=== PATIENT | female | born 1990 | race American Indian/Alaskan Native ===

== ENCOUNTER 2017-02-19 15:48 | Emergency (ER) | payer SELFPAY ==
[2017-02-19 17:55] LABS: Bilirubin,Urine NEG (Negative); Blood,Urine NEG (Negative); Ketones,Urine NEG (Negative); Leukocyte Esterase,Urine MOD (Negative); Mucus,Urine 1+ /HPF; Nitrite,Urine NEG (Negative); Protein,Urine <15 mg/dL mg/dL (Negative)
--- NOTE | 2017-02-19 19:51 | Emergency Department Report ---
HPI - General Chief Complaint: Urogenital-Female Time Seen by Provider: 02/19/17 19:28 - HPI HPI: 26-year-old female presents today with increased urinary frequency and urgency 2 days. Positive for history of UTI and states this feels similar. Patient states last menstrual period unknown, has a Nexplanon implant in her left bicep. She has taken one dose of amoxicillin today without relief. Denies fever, chills, nausea, vomiting, chest pain, shortness of breath, abdominal pain , partial bleeding, vaginal discharge. ED Past Medical Hx - Past Medical History Previous Medical History?: Yes - Surgical History Past Surgical History?: Yes Additional Surgical History: back surgery 2001 - Social History Smoking Status: Current Every Day Smoker Substance Use Type: Alcohol - Medications Home Medications: Home Medications Medication Instructions Recorded Confirmed Last Taken Type Nitrofurantoin Monohyd/M-Cryst 100 mg PO BID #10 capsule 02/19/17 Unknown Rx [Macrobid 100 mg Capsule] Phenazopyridine [Pyridium] 100 mg PO TID 2 Days 02/19/17 Unknown Rx ED Review of Systems ROS: Stated complaint: FREQUENT URINATING Other details as noted in HPI Constitutional: denies: chills, fever, malaise Eyes: denies: eye pain ENT: denies: ear pain, throat pain, congestion Respiratory: denies: cough, shortness of breath, wheezing Cardiovascular: denies: chest pain, palpitations Endocrine: no symptoms reported Gastrointestinal: denies: abdominal pain, nausea, vomiting Genitourinary: urgency, frequency. denies: dysuria, hematuria, discharge Musculoskeletal: denies: back pain Skin: denies: rash Neurological: denies: headache, weakness, numbness, paresthesias Psychiatric: denies: anxiety, depression Physical Exam - Physical Exam Vital Signs: Vital Signs 02/19/17 17:17 Temperature 98.2 F Pulse Rate 63 Respiratory 16 Rate O2 Sat by Pulse 100 Oximetry Physical Exam: GENERAL: The patient is well-developed and well-nourished. Patient is in NAD. HEAD: Normocephalic. Atraumatic. NECK: Supple, nontender, without lymphadenopathy. No meningitic signs are noted. CHEST/LUNGS: Clear to auscultation throughout. HEART/CARDIOVASCULAR: Regular rate and rhythm. No murmurs, rubs or gallops. ABDOMEN: Abdomen is soft, nontender. Bowel sounds normoactive. No guarding or rebound tenderness. No CVA tenderness to palpation. EXTREMITIES: No cyanosis, clubbing or edema. Peripheral pulses intact. Capillary refill less than 2 seconds. NEURO: Alert and oriented x 3. Normal gait. ED Course Vital Signs 02/19/17 17:17 Temperature 98.2 F Pulse Rate 63 Respiratory 16 Rate O2 Sat by Pulse 100 Oximetry ED Medical Decision Making - Medical Decision Making 26-year-old female presents today complaining of increased urinary frequency or urgency 2 days. Her urine test is negative. Urinalysis revealed moderate leukocyte esterase and elevated urine WBC. Patient is in no acute distress at this time. She will be discharged home and is encouraged to follow up with a primary care provider. She will be sent home on Macrobid and Pyridium and is encouraged to return to the emergency room for any worsening symptoms. Critical care attestation.: If time is entered above; I have spent that time in minutes in the direct care of this critically ill patient, excluding procedure time. ED Disposition Clinical Impression: UTI (urinary tract infection) Qualifiers: Urinary tract infection type: acute cystitis Hematuria presence: without hematuria Qualified Code(s): N30.00 - Acute cystitis without hematuria Disposition: - TO HOME OR SELFCARE Is pt being admited?: No Does the pt Need Aspirin: No Condition: Stable Instructions: Urinary Tract Infection in Women (ED), Phenazopyridine (By mouth) Additional Instructions: Follow-up with primary care provider. Return to the emergency department if symptoms worsen. Prescriptions: Nitrofurantoin Monohyd/M-Cryst [Macrobid 100 mg Capsule] 100 mg PO BID #10 capsule Phenazopyridine [Pyridium] 100 mg PO TID 2 Days Referrals: PRIMARY CARE, [Primary Care Provider] - 3-5 Days [facility] [Outside] - 3-5 Days Forms: Work/School Release Form(ED), Accompanied Note Time of Disposition: 19:52
[2017-02-19 20:06] VITALS: BP 119/77
== END 2017-02-19 20:08 | disposition home or self-care (01) ==
LOC: ED 15:48
DX: N30.00 Acute cystitis without hematuria (principal); F17.200 Nicotine dependence, unspecified, uncomplicated
CPT/HCPCS: 81001; 81025; 99283

== ENCOUNTER 2017-03-10 09:31 | Emergency (ER) | payer SELFPAY ==
[2017-03-10 09:43] VITALS: BP 122/77
--- NOTE | 2017-03-10 13:36 | Emergency Department Report ---
HPI - General Chief Complaint: Extremity Injury, Lower Time Seen by Provider: 03/10/17 12:34 - HPI HPI: Pt is a 26 yo female with no medical hx known to me who presents to ED co of splinter in her right big toe x 1 day. Patient states yesterday she stepped outside for the patient saw some broken glass and today she stepped on a piece. Patient states she noticed a small black dot on the end of her big toe. Patient denies inability to walk, loss of function of the toe. She reports Td vaccination up-to-date . She denied fever / chills/nausea vomiting abdominal pain or any other problems. ED Past Medical Hx - Past Medical History Previous Medical History?: No - Surgical History Additional Surgical History: back surgery 2001 - Social History Smoking Status: Current Every Day Smoker Substance Use Type: None - Medications Home Medications: Home Medications Medication Instructions Recorded Confirmed Last Taken Type Nitrofurantoin Monohyd/M-Cryst 100 mg PO BID #10 capsule 02/19/17 Unknown Rx [Macrobid 100 mg Capsule] Phenazopyridine [Pyridium] 100 mg PO TID 2 Days tab 02/19/17 Unknown Rx Cephalexin [Keflex] 500 mg PO Q12HR #10 cap 03/10/17 Unknown Rx Ibuprofen [Motrin] 400 mg PO Q8H PRN #20 tablet 03/10/17 Unknown Rx ED Review of Systems ROS: Stated complaint: MOUTH PAIN Other details as noted in HPI Constitutional: denies: chills, fever Eyes: denies: eye pain, eye discharge, vision change ENT: denies: ear pain, throat pain Respiratory: denies: cough, shortness of breath, wheezing Cardiovascular: denies: chest pain, palpitations Endocrine: no symptoms reported Gastrointestinal: denies: abdominal pain, nausea, diarrhea Genitourinary: denies: urgency, dysuria, discharge Musculoskeletal: denies: back pain, joint swelling, arthralgia Skin: denies: rash, lesions Neurological: denies: headache, weakness, paresthesias Psychiatric: denies: anxiety, depression Hematological/Lymphatic: denies: easy bleeding, easy bruising Physical Exam - Physical Exam Vital Signs: Vital Signs 03/10/17 09:38 Temperature 98.1 F Pulse Rate 90 Respiratory 16 Rate Blood Pressure 122/77 O2 Sat by Pulse 99 Oximetry Physical Exam: GENERAL: Alert and oriented x3, no apparent distress, Normal Gait, atraumatic. HEAD: Head is normocephalic and a-traumatic. EYES: Extra ocular muscles are intact. Pupils are equal, round, and reactive to light and accommodation. LUNGS: Symetrical with respiration, No wheezing, no rales or crackles, CTAB. HEART: S1, S2 present, regular rate and rhythm without murmur. EXTREMITIES/MUSCULOSKELETAL: No cyanosis, clubbing, rash, lesions or edema. Full ROM bilaterally. Pedal Pulses 2+ bilaterally. Pinpoint black clara seen on ride medial aspect of the great toe., No erythema, no erythematous, tender to palpation at the site NEUROLOGIC: The patient is cooperative with no focal neurologic deficits. Normal speech. Normal sensation in bilateral lower extremities, No loss of sensation, SKIN: Warm and dry, No lesions, No ulceration or induration present. ED Course Vital Signs 03/10/17 09:38 Temperature 98.1 F Pulse Rate 90 Respiratory 16 Rate Blood Pressure 122/77 O2 Sat by Pulse 99 Oximetry ED Medical Decision Making - Medical Decision Making 26-year-old female presents with foot splinter ED course: The toe was cleaned with alcohol and Betadine. splinter was removed with pick ups. She tolerated procedure well. Discussed with patient to follow-up with primary care physician. Discussed applied triple to glottic ointment and wound little abrasion. Vital signs are normal patient is in no acute distress showed no signs of instructions as given. Critical care attestation.: If time is entered above; I have spent that time in minutes in the direct care of this critically ill patient, excluding procedure time. ED Disposition Clinical Impression: Splinter of right foot without infection Qualifiers: Encounter type: initial encounter Qualified Code(s): S90.851A - Superficial foreign body, right foot, initial encounter Disposition: DC- TO HOME OR SELFCARE Is pt being admited?: No Does the pt Need Aspirin: No Condition: Stable Instructions: Abrasion (ED) Additional Instructions: Keep wound dry daily. Apply triple ointment to the abrasion on the foot Follow-up with primary care physician. Prescriptions: Cephalexin [Keflex] 500 mg PO Q12HR #10 cap Ibuprofen [Motrin] 400 mg PO Q8H PRN #20 tablet PRN Reason: Pain Referrals: PRIMARY CARE, [Primary Care Provider] - 3-5 Days [facility] [Outside] - 3-5 Days [facility] [Outside] - 3-5 Days [facility] [Outside] - 3-5 Days Forms: Accompanied Note, Work/School Release Form Time of Disposition: 13:36
== END 2017-03-10 14:03 | disposition home or self-care (01) ==
LOC: ED 09:31
DX: S90.851A Superficial foreign body, right foot, initial encounter (principal); F17.200 Nicotine dependence, unspecified, uncomplicated; W45.8XXA Other foreign body or object entering through skin, initial encounter; Y93.89 Activity, other specified; Y92.89 Other specified places as the place of occurrence of the external cause; Y99.8 Other external cause status
CPT/HCPCS: 99282

== ENCOUNTER 2018-12-26 13:51 | Emergency (ER) | payer MEDICAID ==
--- NOTE | 2018-12-26 15:06 | Event Note ---
ED Screening Note Date of service: 12/26/18 Time: 15:02 ED Screening Note: This is a 28 y.o. F. that presents to the ER with pain left shoulder blade radiating to chest for 2 days. Denies injury Reports acute on chronic back pain for years. This initial assessment/diagnostic orders/clinical plan/treatment(s) is/are subject to change based on patients health status, clinical progression and re- assessment by fellow clinical providers in the ED. Further treatment and workup at subsequent clinical providers discretion. Patient/guardian urged not to elope from the ED as their condition may be serious if not clinically assessed and managed. Initial orders include: XR thoracic
[2018-12-26 15:10] VITALS: BP 141/86
--- NOTE | 2018-12-26 16:12 | XRay Report ---
THORACIC SPINE 3 VIEWS INDICATION: pain left shoulder blade and chest. COMPARISON: No relevant prior imaging study available. FINDINGS: Nicolás rods are noted throughout the thoracic spine. There is osseous fusion throughout the thora cic spine. No fracture or subluxation is seen. There is mild scoliosis. IMPRESSION: 1. No acute findings. Signer Name: Marcelo Kc MD Signed: 12/26/2018 4:07 PM Workstation Name: [id number]
[2018-12-26] MEDS ORDERED: NORCO 5/325 PO ONE (16:31)
[2018-12-26] MEDS ORDERED: FLEXERIL PO ONE (16:31)
--- NOTE | 2018-12-26 16:31 | Emergency Department Report ---
ED Back Pain/Injury HPI - General Chief Complaint: Back Pain/Injury Stated Complaint: LFT SHOULDER/BACK PAIN/POSS SURG Time Seen by Provider: 12/26/18 15:02 Source: patient Limitations: No Limitations - History of Present Illness Initial Comments: Ms. Gaines is a very pleasant 28-year-old female with history of scoliosis status post surgery 15 years ago who presents with severe left upper back pain. Her arm twisted behind her while playing with her son She had immediate pain in her left upper back near her shoulder blade. She feels as if her muscles are stretched. Pain radiates to the chest. Exquisite severe pain . The incident occurred on . Improved on Friday. Ibuprofen provides mild relief. She is afraid to make some movements. Denies shortness of breath. Denies fever. Denies cough. MD Complaint: back pain, back injury -: Sudden Place: home Severity: mild Quality: dull Consistency: constant Improves With: other (sitting still) Worsens With: movement, walking Context: turning/twisting, bending Associated Symptoms: denies other symptoms - Related Data Previous Rx's Medication Instructions Recorded Last Taken Type Nitrofurantoin Monohyd/M-Cryst 100 mg PO BID #10 capsule 02/19/17 Unknown Rx [Macrobid 100 mg Capsule] Phenazopyridine [Pyridium] 100 mg PO TID 2 Days tab 02/19/17 Unknown Rx Ibuprofen [Motrin] 400 mg PO Q8H PRN #20 tablet 03/10/17 Unknown Rx cephALEXin [Keflex] 500 mg PO Q12HR #10 cap 03/10/17 Unknown Rx Cyclobenzaprine [Flexeril] 10 mg PO TID PRN #20 tablet 12/26/18 Unknown Rx HYDROcodone/APAP 5-325 [[place] 1 each PO Q6HR PRN #10 tablet 12/26/18 Unknown Rx 5/325] Allergies Allergy/AdvReac Type Severity Reaction Status Date / Time No Known Allergies Allergy Verified 12/26/18 15:08 ED Review of Systems ROS: Stated complaint: LFT SHOULDER/BACK PAIN/POSS SURG Other details as noted in HPI Comment: All other systems reviewed and negative Constitutional: denies: fever, malaise Respiratory: denies: cough, shortness of breath Cardiovascular: chest pain ED Past Medical Hx - Surgical History Past Surgical History?: Yes Additional Surgical History: back surgery 2001 - Social History Smoking Status: Current Every Day Smoker - Medications Home Medications: Home Medications Medication Instructions Recorded Confirmed Last Taken Type Nitrofurantoin Monohyd/M-Cryst 100 mg PO BID #10 capsule 02/19/17 Unknown Rx [Macrobid 100 mg Capsule] Phenazopyridine [Pyridium] 100 mg PO TID 2 Days tab 02/19/17 Unknown Rx Ibuprofen [Motrin] 400 mg PO Q8H PRN #20 tablet 03/10/17 Unknown Rx cephALEXin [Keflex] 500 mg PO Q12HR #10 cap 03/10/17 Unknown Rx Cyclobenzaprine [Flexeril] 10 mg PO TID PRN #20 tablet 12/26/18 Unknown Rx HYDROcodone/APAP 5-325 [[place] 1 each PO Q6HR PRN #10 tablet 12/26/18 Unknown Rx 5/325] ED Physical Exam - General Limitations: No Limitations General appearance: alert, in no apparent distress - Head Head exam: Present: atraumatic, normocephalic - Eye Eye exam: Present: normal appearance - ENT ENT exam: Present: mucous membranes moist - Neck Neck exam: Present: normal inspection - Respiratory Respiratory exam: Present: normal lung sounds bilaterally. Absent: respiratory distress - Cardiovascular Cardiovascular Exam: Present: regular rate, normal rhythm. Absent: systolic murmur, diastolic murmur, rubs, gallop - GI/Abdominal GI/Abdominal exam: Present: soft, normal bowel sounds. Absent: distended, tenderness, guarding, rebound - Extremities Exam Extremities exam: Present: normal inspection - Back Exam Back exam: Present: tenderness, muscle spasm, paraspinal tenderness. Absent: CVA tenderness (R), CVA tenderness (L), vertebral tenderness - Neurological Exam Neurological exam: Present: alert, oriented X3 - Psychiatric Psychiatric exam: Present: normal affect, normal mood - Skin Skin exam: Present: warm, dry, intact, normal color. Absent: rash ED Course Vital Signs 12/26/18 15:08 Temperature 98.6 F Pulse Rate 88 Respiratory 18 Rate Blood Pressure 141/86 O2 Sat by Pulse 99 Oximetry ED Medical Decision Making - Medical Decision Making left rhomboid strain: rx norco flexeril Critical care attestation.: If time is entered above; I have spent that time in minutes in the direct care of this critically ill patient, excluding procedure time. ED Disposition Clinical Impression: Rhomboid muscle strain Disposition: DC-01 TO HOME OR SELFCARE Is pt being admited?: No Does the pt Need Aspirin: No Condition: Stable Instructions: Muscle Strain (ED) Prescriptions: Cyclobenzaprine [Flexeril] 10 mg PO TID PRN #20 tablet PRN Reason: Muscle Spasm HYDROcodone/APAP 5-325 [[place] 5/325] 1 each PO Q6HR PRN #10 tablet PRN Reason: Pain Forms: Work/School Release Form(ED)
== END 2018-12-26 17:19 | disposition home or self-care (01) ==
LOC: ED 13:51
DX: S29.012A Strain of muscle and tendon of back wall of thorax, initial encounter (principal); F17.200 Nicotine dependence, unspecified, uncomplicated; Z79.899 Other long term (current) drug therapy; X58.XXXA Exposure to other specified factors, initial encounter; Y93.89 Activity, other specified; Y92.89 Other specified places as the place of occurrence of the external cause; Y99.8 Other external cause status
CPT/HCPCS: 72072